=== PATIENT | male | born 1965 | race African-American/Black ===

== ENCOUNTER 2020-03-12 11:30 | Inpatient (IN) | payer MEDICAID, OTHER ==
[~2020-03-12] VITALS: Ht 180.3 cm; Wt 131.4 kg
[2020-03-12] MEDS ORDERED: DOXYCYCLINE 100MG/250ML 250 ML IV ONE (11:45)
[2020-03-12] MEDS ORDERED: ACETAMINOPHEN 325 MG TAB PO ONE (11:45)
[2020-03-12] MEDS ORDERED: ERGOCALCIFEROL 50,000 UNIT(1.25MG) CAP PO SCH (11:45)
[2020-03-12] MEDS ORDERED: ASCORBIC ACID 500 MG TAB PO ONE (11:45)
[2020-03-12] MEDS ORDERED: ZINC SULFATE 220mg CAP or TAB PO ONE (11:45)
[2020-03-12] MEDS ORDERED: SODIUM CHLORIDE 0.9% 1,000 ML IV ONE (12:00)
[2020-03-12 12:04] LABS: Basophils # (auto) 0.1 10 ^3/uL (0-0.2); Eosinophils # (auto) 0.1 10 ^3/uL (0-0.8); Eosinophils % (auto) 1.8 % (0.0-7.0); Hematocrit 38.9 % (41.0-53.0); Mean Corpuscular Hemoglobin 26.8 pg (28.0-32.0); Monocytes # (auto) 0.9 10 ^3/uL (0-1.3); Red Cell Distribution Width 15.1 % (11.8-14.3)
[2020-03-12 12:05] LABS: Basophils % (auto) 0.8 % (0.0-2.0); Hemoglobin 12.7 g/dL (13.5-17.5); Mean Corpuscular Hgb Conc. 32.6 g/dL (32.0-36.0); Mean Corpuscular Volume 82.3 fL (80.0-100.0); Monocytes % (auto) 12.5 % (0.0-12.0); Neutrophils % (auto) 56.9 % (37.0-80.0); Nucleated Red Blood Cells % 0.1 %; Platelet Count (auto) 190 10^3/uL (140-450); Red Blood Cells 4.73 10^6/uL (4.5-5.90)
[2020-03-12 12:21] LABS: Albumin 3.6 g/dL (3.4-5.0); Anion Gap 7 (5-15); Blood Urea Nitrogen 10 mg/dL (7-18); Carbon Dioxide 22 mmol/L (21-32); Chloride 105 mmol/L (98-107); Glucose 120 mg/dL (74-106); Potassium 3.7 mmol/L (3.5-5.1); Sodium 134 mmol/L (136-145)
[2020-03-12 12:31] LABS: Alanine Aminotransferase 32 U/L (16-61); Alkaline Phosphatase 97 U/L (45-117); Aspartate Aminotransferase 24 U/L (15-37); BUN/Creatinine Ratio 7.8; Bilirubin, Total 0.6 mg/dL (0.2-1.0); CRP High Sensitivity 4.93 mg/dL (< 0.3); GFR African American 74 mL/min; GFR Non-African American 61 mL/min; Lactate Dehydrogenase 219 U/L (87-241); Total Protein 8.6 g/dL (6.4-8.2)
[2020-03-12 12:34] LABS: Lactic Acid w/Reflex 2.1 mmol/L (0.4-2.0)
[2020-03-12] MEDS ORDERED: ASPI-231 PO (13:44)
[2020-03-12] MEDS ORDERED: ATOR1TAB PO (13:44)
[2020-03-12] MEDS ORDERED: OMEP20TA PO (13:44)
[2020-03-12] MEDS ORDERED: METO-158 PO (13:44)
[2020-03-12] MEDS ORDERED: TICA90TA PO (13:44)
[2020-03-12] MEDS ORDERED: OXYCODONE W/ ACETAMINOPHEN 5/325MG TABLET PO PRN (14:00)
[2020-03-12] MEDS ORDERED: ALBUTEROL SULF HFA 90MCG INH 200DOSE IN SCH (14:00)
[2020-03-12] MEDS ORDERED: NITROGLYCERIN 0.4 MG SL TAB SL PRN (14:00)
[2020-03-12] MEDS ORDERED: MORPHINE SULF INJ 2 MG/ML SYRINGE 1ML IV PRN (14:00)
[2020-03-12] MEDS: ENOXAPARIN SOD 40 MG/0.4 ML SYRINGE SC SCH (15:07)
[2020-03-12 17:30] VITALS: BP 145/89
[2020-03-12] MEDS ORDERED: ALBUAER3 IN (18:17)
[2020-03-12] MEDS ORDERED: ACET-1158 PO (18:17)
[2020-03-12] MEDS: TICAGRELOR 90 MG TAB PO SCH (21:40)
[2020-03-12] MEDS: METOPROLOL TARTRATE 50 MG TAB PO SCH (21:41)
[2020-03-12] MEDS: ATORVASTATIN 20 MG TAB PO SCH (21:41)
[2020-03-12] MEDS: DOXYCYCLINE 100 MG TAB/CAP PO SCH (21:47)
[2020-03-12] MEDS: ACETAMINOPHEN 500 MG TAB PO PRN (21:47)
[2020-03-12 22:00] VITALS: BP 127/89
[2020-03-13 05:00] VITALS: BP 122/81
[2020-03-13 05:48] LABS: Basophils # (auto) 0 10 ^3/uL (0-0.2); Basophils % (auto) 0.7 % (0.0-2.0); Eosinophils # (auto) 0 10 ^3/uL (0-0.8); Eosinophils % (auto) 0.6 % (0.0-7.0); Hematocrit 41.2 % (41.0-53.0); Hemoglobin 13.7 g/dL (13.5-17.5); Lymphocytes # (auto) 1.5 10 ^3/uL (0.4-5.4); Lymphocytes % (auto) 23.2 % (10.0-50.0); Mean Corpuscular Hemoglobin 27.5 pg (28.0-32.0); Mean Corpuscular Hgb Conc. 33.2 g/dL (32.0-36.0); Monocytes # (auto) 0.7 10 ^3/uL (0-1.3); Monocytes % (auto) 10.4 % (0.0-12.0); Neutrophils # (auto) 4.3 10 ^3/uL (1.6-8.6); Neutrophils % (auto) 65.1 % (37.0-80.0); Nucleated Red Blood Cells % 0.1 %; Platelet Count (auto) 184 10^3/uL (140-450); Red Blood Cells 4.96 10^6/uL (4.5-5.90); Red Cell Distribution Width 15.3 % (11.8-14.3); White Blood Cell 6.6 10^3/uL (4.4-10.8)
[2020-03-13 06:03] LABS: Potassium 3.9 mmol/L (3.5-5.1)
[2020-03-13 06:22] LABS: Albumin 3.5 g/dL (3.4-5.0); BUN/Creatinine Ratio 8.2; Bilirubin, Total 0.7 mg/dL (0.2-1.0); CRP High Sensitivity 9.86 mg/dL (< 0.3); Calcium 8.9 mg/dL (8.5-10.1); Total Protein 8.4 g/dL (6.4-8.2)
[2020-03-13 08:44] VITALS: BP 114/83
[2020-03-13] MEDS: METOPROLOL TARTRATE 50 MG TAB PO SCH ×2 (10:00→21:56)
[2020-03-13] MEDS ORDERED: ZINC SULFATE 220mg CAP or TAB PO SCH (10:00)
[2020-03-13] MEDS: TICAGRELOR 90 MG TAB PO SCH ×2 (10:04→21:56)
[2020-03-13] MEDS: DOXYCYCLINE 100 MG TAB/CAP PO SCH (10:05)
[2020-03-13] MEDS: CHOLECALCIFEROL (VITD3) 1,000IU=25mCg TAB PO SCH (10:06)
[2020-03-13] MEDS: ENOXAPARIN SOD 40 MG/0.4 ML SYRINGE SC SCH (10:06)
[2020-03-13] MEDS: ACETAMINOPHEN 500 MG TAB PO PRN (10:07)
[2020-03-13] MEDS ORDERED: LORazepam 2MG/ML-1ML VIAL IV ONE (11:15)
[2020-03-13 12:23] LABS: Urine Bacteria FEW /hpf (None Seen); Urine Blood TRACE /uL (Negative); Urine Specific Gravity 1.012 (1.001-1.035); Urine WBC 7 /hpf (0 - 3)
[2020-03-13 12:44] VITALS: BP 110/61
[2020-03-13] MEDS ORDERED: methylPREDNISolone SOD SUCC 40 MG/ML VL IV ONE (14:00)
[2020-03-13] MEDS ORDERED: PIPERACILLIN-TAZOB 3.375GM 100 ML IV ONE (14:00)
[2020-03-13] MEDS: ALBUTEROL SULF HFA 90MCG INH 200DOSE IN SCH ×2 (15:28→21:55)
[2020-03-13] MEDS: SODIUM CHLORIDE 0.9% 1,000 ML IV SCH (15:29)
[2020-03-13 15:30] VITALS: BP 110/61
[2020-03-13 16:00] VITALS: BP 124/88
[2020-03-13] MEDS: PIPERACILLIN-TAZOB 3.375GM 100 ML IV SCH (18:00)
[2020-03-13] MEDS: methylPREDNISolone SOD SUCC 40 MG/ML VL IV SCH (21:55)
[2020-03-13] MEDS: ATORVASTATIN 20 MG TAB PO SCH (21:56)
[2020-03-14] MEDS: PIPERACILLIN-TAZOB 3.375GM 100 ML IV SCH ×4 (00:34→17:28)
[2020-03-14 05:00] VITALS: BP 121/71
[2020-03-14 05:57] LABS: Calcium 8.8 mg/dL (8.5-10.1); Magnesium 2.8 mg/dL (1.6-2.6); Potassium 4.3 mmol/L (3.5-5.1)
[2020-03-14] MEDS: SODIUM CHLORIDE 0.9% 1,000 ML IV SCH ×3 (05:59→22:36)
[2020-03-14 08:00] VITALS: BP 121/71
[2020-03-14] MEDS: CHOLECALCIFEROL (VITD3) 1,000IU=25mCg TAB PO SCH (08:18)
[2020-03-14] MEDS: methylPREDNISolone SOD SUCC 40 MG/ML VL IV SCH ×2 (08:18→22:07)
[2020-03-14] MEDS: PANTOPRAZOLE 40 MG TAB PO SCH (08:18)
[2020-03-14] MEDS: ENOXAPARIN SOD 40 MG/0.4 ML SYRINGE SC SCH (08:18)
[2020-03-14] MEDS: METOPROLOL TARTRATE 50 MG TAB PO SCH ×2 (08:19→22:24)
[2020-03-14 09:00] VITALS: BP 154/98
[2020-03-14] MEDS ORDERED: DEXTROSE (50%) 50ML SYRG IV PRN (09:45)
[2020-03-14] MEDS ORDERED: ASCORBIC ACID 500 MG TAB PO SCH (10:00)
[2020-03-14] MEDS ORDERED: ENOXAPARIN SOD 40 MG/0.4 ML SYRINGE SC SCH (10:00)
[2020-03-14] MEDS: TICAGRELOR 90 MG TAB PO SCH ×2 (10:22→22:13)
[2020-03-14] MEDS: InsuLIN REG 1unit/0.01ml Soln (100units/ml) SC SCH ×3 (11:30→22:18)
[2020-03-14] MEDS: ACCU-CHEK COMFORT CURVE STRIP VI SCH ×3 (11:56→22:19)
[2020-03-14 13:00] VITALS: BP 136/89
[2020-03-14] MEDS ORDERED: ALBUTEROL SULF 2.5 MG/0.5ML(0.5%) NEB SOLN NEB PRN (13:00)
[2020-03-14] MEDS ORDERED: IPRATROPIUM BROM 0.5 MG/2.5ML INH SOL NEB PRN (13:00)
[2020-03-14] MEDS: guaiFENesin-DM 100/10mg/5ml SYR PO PRN ×2 (15:28→22:37)
[2020-03-14 16:28] VITALS: BP 136/87
[2020-03-14] MEDS ORDERED: IBUPROFEN 600 MG TAB PO PRN (21:15)
[2020-03-14] MEDS ORDERED: ATORVASTATIN 20 MG TAB PO SCH (22:00)
[2020-03-14 22:01] VITALS: BP 125/79
[2020-03-14] MEDS: ACETAMINOPHEN 500 MG TAB PO PRN (22:26)
[2020-03-15] MEDS: PIPERACILLIN-TAZOB 3.375GM 100 ML IV SCH ×3 (00:22→11:55)
[2020-03-15 05:00] VITALS: BP 108/74
[2020-03-15] MEDS: ACCU-CHEK COMFORT CURVE STRIP VI SCH ×3 (06:32→17:16)
[2020-03-15] MEDS: InsuLIN REG 1unit/0.01ml Soln (100units/ml) SC SCH ×3 (06:52→17:00)
[2020-03-15 07:46] LABS: Basophils # (auto) 0 10 ^3/uL (0-0.2); Basophils % (auto) 0.1 % (0.0-2.0); Eosinophils # (auto) 0 10 ^3/uL (0-0.8); Hematocrit 40.6 % (41.0-53.0); Hemoglobin 13.2 g/dL (13.5-17.5); Lymphocytes # (auto) 1.2 10 ^3/uL (0.4-5.4); Lymphocytes % (auto) 12.2 % (10.0-50.0); Mean Corpuscular Hgb Conc. 32.4 g/dL (32.0-36.0); Mean Corpuscular Volume 83.2 fL (80.0-100.0); Monocytes # (auto) 0.6 10 ^3/uL (0-1.3); Monocytes % (auto) 6.1 % (0.0-12.0); Neutrophils # (auto) 7.9 10 ^3/uL (1.6-8.6); Neutrophils % (auto) 81.6 % (37.0-80.0); Nucleated Red Blood Cells % 0.1 %; Platelet Count (auto) 220 10^3/uL (140-450); Red Blood Cells 4.88 10^6/uL (4.5-5.90); Red Cell Distribution Width 15.1 % (11.8-14.3); White Blood Cell 9.7 10^3/uL (4.4-10.8)
[2020-03-15 07:55] LABS: BUN/Creatinine Ratio 16.4; Calcium 8.5 mg/dL (8.5-10.1); Magnesium 3.1 mg/dL (1.6-2.6)
[2020-03-15 09:00] VITALS: BP 133/95
[2020-03-15] MEDS: TICAGRELOR 90 MG TAB PO SCH (09:26)
[2020-03-15] MEDS: METOPROLOL TARTRATE 50 MG TAB PO SCH (09:26)
[2020-03-15] MEDS: PANTOPRAZOLE 40 MG TAB PO SCH (09:27)
[2020-03-15] MEDS: ENOXAPARIN SOD 40 MG/0.4 ML SYRINGE SC SCH (09:27)
[2020-03-15 13:00] VITALS: BP 110/91
[2020-03-15] MEDS ORDERED: LEVO750T2 PO (13:38)
[2020-03-15] MEDS ORDERED: METF-370 PO (13:38)
[2020-03-15] MEDS ORDERED: levoFLOXacin 250 MG TAB PO ONE (13:45)
[2020-03-15] MEDS: guaiFENesin-DM 100/10mg/5ml SYR PO PRN (14:47)
[2020-03-15 17:00] VITALS: BP 122/75
[2020-03-15] MEDS: ACETAMINOPHEN 500 MG TAB PO PRN (17:37)
[2020-03-15] MEDS ORDERED: metFORMIN HYDROCHLORIDE 500 MG TAB PO SCH (18:00)
[2020-03-15 20:13] VITALS: BP 121/71
[2020-03-16] MEDS ORDERED: levoFLOXacin 250 MG TAB PO SCH (10:00)
== END 2020-03-15 20:53 | disposition home or self-care (01) | DRG 720 ==
LOC: ER 11:30 → EDBD 11:30 → TELE 11:31 → TELE-EAST 17:33 → TELE-E-ADS 03-13 15:17 → TELE-EAST 03-13 20:25 → TELE-WESTW 03-13 22:30
PROVIDERS: ADMIT Nurse Practitioner Acute Care; ATTEND Internal Medicine
DX: A41.9 Sepsis, unspecified organism (principal); J96.00 Acute respiratory failure, unspecified whether with hypoxia or hypercapnia; N17.0 Acute kidney failure with tubular necrosis; J18.9 Pneumonia, unspecified organism; E11.22 Type 2 diabetes mellitus with diabetic chronic kidney disease; C61 Malignant neoplasm of prostate; D64.9 Anemia, unspecified; I48.91 Unspecified atrial fibrillation; J44.0 Chronic obstructive pulmonary disease with (acute) lower respiratory infection; E66.9 Obesity, unspecified; Z03.818 Encounter for observation for suspected exposure to other biological agents ruled out; I25.10 Atherosclerotic heart disease of native coronary artery without angina pectoris; K21.9 Gastro-esophageal reflux disease without esophagitis; E78.5 Hyperlipidemia, unspecified; E11.65 Type 2 diabetes mellitus with hyperglycemia; I12.9 Hypertensive chronic kidney disease with stage 1 through stage 4 chronic kidney disease, or unspecified chronic kidney disease; J44.1 Chronic obstructive pulmonary disease with (acute) exacerbation; N18.9 Chronic kidney disease, unspecified; Z79.02 Long term (current) use of antithrombotics/antiplatelets; Z95.5 Presence of coronary angioplasty implant and graft; Z85.46 Personal history of malignant neoplasm of prostate; Z79.82 Long term (current) use of aspirin; Z68.39 Body mass index [BMI] 39.0-39.9, adult
CPT/HCPCS: 36415; 71045; 71250; 76775; 80048; 80053; 80061; 81001; 82728; 82962; 83036; 83605; 83615; 83735; 83880; 84443; 84484; 85025; 85379; 86141; 87040; 87070; 87086; 87804; 87880; 93005; 94640; G0378; J1815; J2543; J3490

== ENCOUNTER 2021-07-18 19:48 | Emergency (ER) | payer MEDICAID ==
[~2021-07-18] VITALS: Ht 180.3 cm; Wt 127.0 kg
[~2021-07-18 19:48] MED LIST: ACET-1158 PO; ALBUAER3 IN; ASPI1TAB20 PO; ATOR-47 PO; LEVO750T8 PO; METF-370 PO; METO-158 PO; OMEP20TA PO; TICA90TA PO
[2021-07-18 19:50] VITALS: BP 124/85
== END 2021-07-18 21:59 | disposition left against medical advice (07) ==
LOC: ER 19:49
DX: R06.02 Shortness of breath (principal); R00.2 Palpitations; Z53.21 Procedure and treatment not carried out due to patient leaving prior to being seen by health care provider
CPT/HCPCS: 71045; 93005

== ENCOUNTER 2022-01-29 15:58 | Emergency (ER) | payer MEDICAID ==
[~2022-01-29] VITALS: Ht 180.3 cm; Wt 127.0 kg
[2022-01-29 18:55] LABS: Basophils # (auto) 0 10 ^3/uL (0-0.2); Basophils % (auto) 0.4 % (0.0-2.0); Eosinophils # (auto) 0.1 10 ^3/uL (0-0.8); Eosinophils % (auto) 2.4 % (0.0-7.0); Hematocrit 39.5 % (41.0-53.0); Hemoglobin 12.7 g/dL (13.5-17.5); Lymphocytes # (auto) 1.5 10 ^3/uL (0.4-5.4); Lymphocytes % (auto) 48.5 % (10.0-50.0); Mean Corpuscular Hgb Conc. 32.2 g/dL (32.0-36.0); Mean Corpuscular Volume 86.9 fL (80.0-100.0); Monocytes # (auto) 0.5 10 ^3/uL (0-1.3); Monocytes % (auto) 15.7 % (0.0-12.0); Nucleated Red Blood Cells % 0.1 %; Red Blood Cells 4.54 10^6/uL (4.5-5.90); Red Cell Distribution Width 14.5 % (11.8-14.3); White Blood Cell 3.1 10^3/uL (4.4-10.8)
[2022-01-29 19:10] LABS: Albumin 3.2 g/dL (3.4-5.0); Calcium 8.5 mg/dL (8.5-10.1); Potassium 3.8 mmol/L (3.5-5.1)
[2022-01-29 19:14] LABS: BUN/Creatinine Ratio 12.3; Bilirubin, Total 0.3 mg/dL (0.2-1.0); Total Protein 7.1 g/dL (6.4-8.2)
[2022-01-29] MEDS ORDERED: CEPH-509 PO (19:31)
[2022-01-29] MEDS ORDERED: METR500T PO (19:31)
[2022-01-29] MEDS ORDERED: DIPH2.5T73 PO (19:31)
[2022-01-29] MEDS ORDERED: metroNIDAZOLE 500 MG TAB PO ONE (20:00)
[2022-01-29] MEDS ORDERED: cefTRIAXone W LIDOCAINE 1 GM IM IM ONE (20:00)
[2022-01-29] MEDS ORDERED: DIPHENOXYLATE W/ATROPINE 2.5 MG TAB PO ONE (20:00)
[2022-01-29 21:15] VITALS: BP 114/77
== END 2022-01-29 21:49 | disposition home or self-care (01) ==
LOC: ER 15:58
DX: K52.9 Noninfective gastroenteritis and colitis, unspecified (principal); E44.1 Mild protein-calorie malnutrition; J45.909 Unspecified asthma, uncomplicated; I10 Essential (primary) hypertension; Z68.39 Body mass index [BMI] 39.0-39.9, adult
CPT/HCPCS: 36415; 80053; 85025; 93005; 99284; J0696

== ENCOUNTER 2022-09-18 20:43 | Emergency (ER) | payer MEDICAID ==
[~2022-09-18] VITALS: Ht 180.3 cm; Wt 120.9 kg
[~2022-09-18 20:43] MED LIST changes: +CEPH-509 PO; +METR500T PO
[2022-09-18] MEDS ORDERED: MORPHINE SULFATE 4 MG/ML SYR/VIAL IV ONE (23:30)
[2022-09-18] MEDS ORDERED: ONDANSETRON HCL 4 MG/2 ML VIAL IV ONE (23:30)
[2022-09-19 00:16] LABS: Basophils # (auto) 0 10 ^3/uL (0-0.2); Basophils % (auto) 0.5 % (0.0-2.0); Eosinophils # (auto) 0 10 ^3/uL (0-0.8); Eosinophils % (auto) 0.9 % (0.0-7.0); Hematocrit 39.4 % (41.0-53.0); Hemoglobin 12.5 g/dL (13.5-17.5); Lymphocytes # (auto) 1.4 10 ^3/uL (0.4-5.4); Mean Corpuscular Hemoglobin 28.1 pg (28.0-32.0); Mean Corpuscular Hgb Conc. 31.8 g/dL (32.0-36.0); Mean Corpuscular Volume 88.4 fL (80.0-100.0); Monocytes # (auto) 0.5 10 ^3/uL (0-1.3); Monocytes % (auto) 9.9 % (0.0-12.0); Neutrophils # (auto) 3.3 10 ^3/uL (1.6-8.6); Neutrophils % (auto) 62.7 % (37.0-80.0); Nucleated Red Blood Cells % 0.1 %; Red Blood Cells 4.46 10^6/uL (4.5-5.90); Red Cell Distribution Width 15.8 % (11.8-14.3); White Blood Cell 5.2 10^3/uL (4.4-10.8)
[2022-09-19 00:27] LABS: INR 0.93 (0.9-1.15); Partial Thromboplastin Time 25.4 sec (24.6-33.4)
[2022-09-19 00:37] LABS: Albumin 3.5 g/dL (3.4-5.0); BUN/Creatinine Ratio 10.4; Potassium 4.2 mmol/L (3.5-5.1)
[2022-09-19 00:39] LABS: Bilirubin, Total 0.4 mg/dL (0.2-1.0); Total Protein 7.6 g/dL (6.4-8.2)
[2022-09-19 00:53] LABS: Urine Bacteria NONE SEEN /hpf (None Seen); Urine Blood Negative /uL (Negative); Urine Mucus FEW (None Seen); Urine Specific Gravity 1.021 (1.001-1.035); Urine WBC 1 /hpf (0 - 3)
[2022-09-19 03:28] VITALS: BP 111/77
[2022-09-19] MEDS ORDERED: OXYCODONE W/ ACETAMINOPHEN 5/325MG TABLET PO ONE (05:00)
== END 2022-09-19 05:07 | disposition home or self-care (01) ==
LOC: ER 20:43
DX: M47.816 Spondylosis without myelopathy or radiculopathy, lumbar region (principal); M79.10 Myalgia, unspecified site; I10 Essential (primary) hypertension; I25.2 Old myocardial infarction; J45.909 Unspecified asthma, uncomplicated; Z79.82 Long term (current) use of aspirin; Z79.2 Long term (current) use of antibiotics; Z79.899 Other long term (current) drug therapy
CPT/HCPCS: 36415; 74176; 80053; 81001; 85025; 85610; 85730

== ENCOUNTER 2022-11-23 11:44 | Emergency (ER) | payer MEDICAID ==
[~2022-11-23] VITALS: Ht 180.3 cm; Wt 123.2 kg
[2022-11-23 13:13] LABS: Basophils # (auto) 0 10 ^3/uL (0-0.2); Basophils % (auto) 0.4 % (0.0-2.0); Eosinophils # (auto) 0.1 10 ^3/uL (0-0.8); Eosinophils % (auto) 1.1 % (0.0-7.0); Hematocrit 39.6 % (41.0-53.0); Hemoglobin 12.9 g/dL (13.5-17.5); Lymphocytes # (auto) 1.9 10 ^3/uL (0.4-5.4); Lymphocytes % (auto) 44.1 % (10.0-50.0); Mean Corpuscular Hemoglobin 29.1 pg (28.0-32.0); Mean Corpuscular Hgb Conc. 32.6 g/dL (32.0-36.0); Mean Corpuscular Volume 89.3 fL (80.0-100.0); Monocytes # (auto) 0.3 10 ^3/uL (0-1.3); Monocytes % (auto) 6.7 % (0.0-12.0); Neutrophils # (auto) 2.1 10 ^3/uL (1.6-8.6); Neutrophils % (auto) 47.7 % (37.0-80.0); Nucleated Red Blood Cells % 0.2 %; Red Blood Cells 4.43 10^6/uL (4.5-5.90); Red Cell Distribution Width 15.5 % (11.8-14.3); White Blood Cell 4.4 10^3/uL (4.4-10.8)
[2022-11-23] MEDS ORDERED: IBU600T PO (13:23)
[2022-11-23 13:29] LABS: Potassium 3.6 mmol/L (3.5-5.1)
[2022-11-23] MEDS ORDERED: HYDROcodone-ACET 10/325MG TAB PO ONE (13:30)
[2022-11-23 13:36] LABS: Albumin 3.6 g/dL (3.4-5.0); BUN/Creatinine Ratio 15.1; Bilirubin, Total 0.5 mg/dL (0.2-1.0); Calcium 8.6 mg/dL (8.5-10.1); Total Protein 6.7 g/dL (6.4-8.2)
[2022-11-23] MEDS ORDERED: HYDR-4902 PO (17:45)
[2022-11-23 17:56] VITALS: BP 124/60
== END 2022-11-23 18:12 | disposition home or self-care (01) ==
LOC: ER 11:44
DX: S66.912A Strain of unspecified muscle, fascia and tendon at wrist and hand level, left hand, initial encounter (principal); I10 Essential (primary) hypertension; I25.2 Old myocardial infarction; E11.9 Type 2 diabetes mellitus without complications; J45.909 Unspecified asthma, uncomplicated; K21.9 Gastro-esophageal reflux disease without esophagitis; Z79.1 Long term (current) use of non-steroidal anti-inflammatories (NSAID); Z79.82 Long term (current) use of aspirin; Z79.2 Long term (current) use of antibiotics; Z79.899 Other long term (current) drug therapy; X58.XXXA Exposure to other specified factors, initial encounter; Y93.89 Activity, other specified; Y92.89 Other specified places as the place of occurrence of the external cause; Y99.8 Other external cause status
CPT/HCPCS: 36415; 80053; 83880; 84484; 84550; 85025

== ENCOUNTER → 2023-05-14 | Outpatient (CLI) | payer MEDICAID ==
[~2023-05-14] MED LIST changes: -ACET-1158 PO; +ACET500T58 PO; +HYDR-4902 PO; +IBU600T PO
== END | disposition home or self-care (01) ==
LOC: Rad HDHVI 08:54
PROVIDERS: ATTEND Internal Medicine Cardiovascular Disease
DX: I11.9 Hypertensive heart disease without heart failure (principal)
CPT/HCPCS: 93306